=== PATIENT | female | born 1995 | race Caucasian/White ===

== ENCOUNTER 2016-10-13 02:39 | Emergency (ER) | payer OTHER ==
[2016-10-13] MEDS ORDERED: ONDANSETRON HCL 4 MG/2 ML VIAL ONE (03:02)
[2016-10-13] MEDS ORDERED: NORMAL SALINE 1,000 ML IV ONE ×2 (03:02→03:29)
[2016-10-13] MEDS ORDERED: KETOROLAC TROMETHAMINE 30 MG/ML VIAL ONE (03:29)
[2016-10-13] MEDS ORDERED: DIPHENHYDRAMINE 50 MG/ML VIAL ONE (03:29)
[2016-10-13] MEDS ORDERED: NORMAL SALINE 250 ML IV ONE (03:29)
--- NOTE | 2016-10-13 04:57 | ER NURSING DOCUMENTATION ---
Nurse's Notes [facility] Name:Sanjuana Parks Age:21 yrs Sex:Female :1995 Arrival Date:10/13/2016 Time:02:39 Bed4 Private MD:Physician, No Diagnosis:Acute Headache Presentation: 10/13 02:41 Acuity: TWAN 3 bw2 02:51 Presenting complaint: Patient states: states she has history of migraines, now has a 2 migraine. pt arrived at [place] last night. pt states she did not bring her migraine medications with her. Transition of care: Home. 02:51 Method Of Arrival: Walk In [facility] Triage Assessment: 02:53 Headache History: The patient has had previous headaches and this one is similar to [facility] previous episodes. General: Appears uncomfortable, Behavior is anxious, crying, fussy, restless. Pain: Pain currently is 8 out of 10 on a pain scale. Pain began when arriving to [place] Also complains of nausea. Neuro: Reports headache in entire. Respiratory: No deficits noted. Airway is patent. Historical: - Allergies: No known drug Allergies; - PMHx: MIGRAINES; - Tetanus: < 10 years. - Ebola Screening: : Patient negative for fever greater than or equal to 101.5 degrees Fahrenheit, and additional compatible Ebola Virus Disease symptoms. Patient denies exposure to infectious person. Patient denies travel to an Ebola-affected area in the 21 days before illness onset. No symptoms or risks identified at this time. . - Family history: No immediate family members are acutely ill. - Immunization history: Flu Vaccine None. - Social history: Smoking status: Patient states was never smoker of tobacco. - Hospitalizations: : No recent hospitalization is reported. Screenin:55 Infectious Disease Risk None. Abuse screen: Denies threats or abuse. Nutritional 2 screening: No deficits noted. Assessment: 02:54 See Triage Assessment done by same RN. Pain: Complains of pain in head. 2 Vital Signs: 02:49 BP 131 / 93; Pulse 84; Resp 22; Temp 98.6; Pulse Ox 97% on R/A; Weight 69.85 kg; Height em1 5 ft. 4 in. (162.56 cm); Pain 10/10; 04:56 BP 128 / 79; Pulse 70; Resp 18; Pulse Ox 95% on R/A; Pain 0/10; bw2 02:49 Body Mass Index 26.43 (69.85 kg, 162.56 cm) em1 [place] Coma Score: 04:42 Eye Response: spontaneous(4). Verbal Response: oriented(5). Motor Response: obeys ak commands(6). Total: 15. ED Course: 02:40 Patient arrived in ED. em2 02:41 Physician, No is Private Physician. em2 02:41 Anna Marie Albarran is Primary Nurse. bw2 02:41 Triage completed. bw2 02:55 Valuables Remains with patient Patient has correct armband on for positive bw2 identification. 02:55 Inserted peripheral IV: 20 gauge in right forearm and blood collected. bw2 03:02 Harris Carrillo MD is Attending Physician. ak 03:35 Assisted to bathroom. pt notified that a urine sample is needed. pt attempted and when bw2 she was unable to give urine sample she started crying. 04:55 Discontinued IV bleeding controlled, pressure dressing applied. em1 Administered Medications: 02:56 Drug: NS 0.9% 1000 ml; Route: IV; Rate: bolus; Site: right forearm; bw2 03:29 Follow up: IV Status: Completed infusion bw2 02:56 Drug: Zofran 4 mg; Route: IVP; Infused Over: 2 mins; Site: right forearm; bw2 03:29 Follow up: Response: No adverse reaction bw2 03:25 Drug: Benadryl 25 mg; Route: IVP; Site: right forearm; bw2 04:16 Follow up: Response: No adverse reaction; Pain is decreased bw2 03:25 Drug: Toradol 30 mg; Route: IVP; Site: right forearm; bw2 04:17 Follow up: Response: Pain is decreased bw2 03:29 Drug: Compazine 10 mg; Route: IVPB; Site: right forearm; bw2 04:16 Follow up: IV Status: Completed infusion bw2 03:30 Drug: NS 0.9% 1000 ml; Route: IV; Rate: bolus; Site: right forearm; bw2 04:17 Follow up: IV Status: Completed infusion bw2 Outcome: 04:44 Discharge ordered by . ak 04:56 Discharged to home ambulatory, with friend. bw2 04:56 Condition: good 04:56 Discharge Assessment: Patient awake, alert and oriented x 3. No cognitive and/or functional deficits noted. Patient verbalized understanding of disposition instructions. 04:56 Discharge instructions given to patient, friend, Instructed on discharge instructions, follow up and referral plans. Demonstrated understanding of instructions. 04:57 Patient left the ED. bw2 10/14 10:10 Discharge F/U Call: Unable to reach: non-working number st 10:10 Discharge F/U Call: Unable to reach: no answer st Signatures: Monica Thakkar RN RN [facility], [facility], [facility]2 [facility] Harris Carrillo MD MD al
--- NOTE | 2016-10-13 04:57 | ER PHYSICIAN DOCUMENTATION ---
Physician Documentation [facility] Name:Sanjuana Parks Age:21 yrs Sex:Female :1995 Arrival Date:10/13/2016 Time:02:39 Bed4 Private MD:Physician, No ED Harris Song Disposition: 10/13/16 04:44 Discharged to Home/Self Care. Impression: Acute Headache. - Condition is Good. - Discharge Instructions: HEADACHE, Migraine (Classical), HEADACHE, Unspecified. - Medical Reconciliation form form. - Follow up: Private Physician; When: 4- 6 days; Reason: Continuance of care. - Problem is an acute exacerbation. - Symptoms are resolved. HPI: 10/13 04:37 This 21 yrs old Female presents to ER via Walk In with complaints of Headache.ak 04:37 The patient complains of pain to the forehead, right mosque and left mosque. The ak patient describes the headache as throbbing. Onset: The symptoms/episode began/occurred today. Associated signs and symptoms: Pertinent positives: nausea, vomiting, Pertinent negatives: altered mental status, dizziness, fever, malaise, neck stiffness, paresthesias, rash, sinus congestion, sinus tenderness, vision changes, vision loss, weakness, vertigo. Severity of symptoms: At its worst the pain was moderate, in the emergency department the pain is unchanged. Headache History: The patient has had previous headaches and this one is similar to previous episodes. Risk factors for subarachnoid hemhorrage: no risk factors present. hx migraine on propranolol per neuro also prn imitrex but up to 4 in a week, discussed rebound. no new change to liu except having n/v. started when coming up to [facility] today. otherwise healthy. no neuro changes. no neck pain. no f/c. no trauma.. Historical: - Allergies: No known drug Allergies; - PMHx: MIGRAINES; - Tetanus: < 10 years. - Ebola Screening: : Patient negative for fever greater than or equal to 101.5 degrees Fahrenheit, and additional compatible Ebola Virus Disease symptoms. Patient denies exposure to infectious person. Patient denies travel to an Ebola-affected area in the 21 days before illness onset. No symptoms or risks identified at this time. . - Family history: No immediate family members are acutely ill. - Immunization history: Flu Vaccine None. - Social history: Smoking status: Patient states was never smoker of tobacco. - Hospitalizations: : No recent hospitalization is reported. ROS: 04:40 Cardiovascular: Negative for chest pain, palpitations, and edema. ak 04:40 Respiratory: Negative for shortness of breath, cough, wheezing, and pleuritic chest ak pain. 04:40 Constitutional: Negative for chills, fatigue, fever, malaise. 04:40 Skin: Negative for rash. 04:40 Neuro: Negative for altered mental status, dizziness, gait disturbance, hearing loss, loss of consciousness, numbness, seizure activity, speech changes, syncope, near syncope, tingling, tinnitus, tremor, visual changes, weakness. Exam: 04:41 Constitutional: The patient appears alert, awake, tearful ak 04:41 Head/face: Exam is negative for acute changes, obvious evidence of injury or deformity, abrasion(s), simental signs, contusion, deformity, ecchymosis, erythema, hematoma, laceration(s), raccoon eyes, rash, swelling, tenderness. 04:41 Neck: ROM/movement: is normal, Meningeal signs: are not present, nuchal rigidity, is not appreciated. 04:41 Cardiovascular: Rate: normal, Rhythm: regular, Edema: is not appreciated. 04:41 Respiratory: Respirations: normal. 04:41 Abdomen/GI: Inspection: abdomen appears normal, Palpation: abdomen is soft and non-tender. 04:41 Skin: Appearance: Color: normal in color. 04:41 Neuro: Orientation: is normal, Cranial nerves: grossly normal, Cerebellar function: is grossly normal, Motor: is normal, Sensation: is normal, Gait: is steady. Vital Signs: 02:49 BP 131 / 93; Pulse 84; Resp 22; Temp 98.6; Pulse Ox 97% on R/A; Weight 69.85 kg; Height em1 5 ft. 4 in. (162.56 cm); Pain 10/10; 04:56 BP 128 / 79; Pulse 70; Resp 18; Pulse Ox 95% on R/A; Pain 0/10; bw2 02:49 Body Mass Index 26.43 (69.85 kg, 162.56 cm) em1 [place] Coma Score: 04:42 Eye Response: spontaneous(4). Verbal Response: oriented(5). Motor Response: obeys ak commands(6). Total: 15. MDM: 03:02 Patient medically screened. ak 04:42 Differential diagnosis: meningitis, migraine, neoplasm, subarachnoid bleed, tension ak headache, dehydration. Neurological re-evaluation: normal neurological exam including cranial nerves, orientation, mentation, motor and sensory exam, cerebellar testing, GCS normal, and normal gait. Data reviewed: vital signs, nurses notes, and as a result, I will discharge patient. Counseling: I had a detailed discussion with the patient and/or guardian regarding: the historical points, exam findings, and any diagnostic results supporting the discharge/admit diagnosis, the need for outpatient follow up. ED course: had specific discussion about migraine vs other new liu, aich, etc. pt felt much better after initial treatment, will not require further w/u at this time, this decision reached together with pt using shared decision making. will d/c c cont neuro f/u.. 10/13 04:03 Order name: HCG, SERUM; Complete Time: 04:46 EDMS Dispensed Medications: 02:56 Drug: NS 0.9% 1000 ml; Route: IV; Rate: bolus; Site: right forearm; bw2 03:29 Follow up: IV Status: Completed infusion bw2 02:56 Drug: Zofran 4 mg; Route: IVP; Infused Over: 2 mins; Site: right forearm; bw2 03:29 Follow up: Response: No adverse reaction bw2 03:25 Drug: Benadryl 25 mg; Route: IVP; Site: right forearm; bw2 04:16 Follow up: Response: No adverse reaction; Pain is decreased bw2 03:25 Drug: Toradol 30 mg; Route: IVP; Site: right forearm; bw2 04:17 Follow up: Response: Pain is decreased bw2 03:29 Drug: Compazine 10 mg; Route: IVPB; Site: right forearm; bw2 04:16 Follow up: IV Status: Completed infusion bw2 03:30 Drug: NS 0.9% 1000 ml; Route: IV; Rate: bolus; Site: right forearm; bw2 04:17 Follow up: IV Status: Completed infusion bw2 Signatures: Anna Marie Albarran bw2 Harris Carrillo MD MD ak
== END 2016-10-13 04:57 | disposition home or self-care (01) ==
LOC: ER 02:39
DX: R51 Headache (principal); R11.2 Nausea with vomiting, unspecified
CPT/HCPCS: 84703; 96361; 96365; 96375; 99284; J1200; J1885; J2405; J7030; J7050